=== PATIENT | female | born 2000 | race Two or more races ===

== ENCOUNTER 2018-07-17 20:34 | Observation (INO) | payer OTHER, MEDICAID ==
[2018-07-17] MEDS ORDERED: ONDANSETRON 4 MG/2 ML VIAL IVP ONE (20:53)
[2018-07-17] MEDS ORDERED: LORazepam 2 MG/ML INJ IVP ONE (20:53)
[2018-07-17] MEDS ORDERED: NS 1,000 ML IV ONE ×3 (20:53→23:25)
--- NOTE | 2018-07-17 20:55 | EDPHY ---
H & P Stated Complaint: N/V, CHILLS - Personal History LMP (Females 10-55): Now Current Tetanus Diphtheria and Acellular Pertussis (TDAP): Yes - Medical/Surgical History Hx Asthma: No Hx Chronic Respiratory Disease: No Hx Diabetes: No Hx Cardiac Disease: No Hx Renal Disease: No Hx Cirrhosis: No Hx Alcoholism: No Hx HIV/AIDS: No Hx Splenectomy or Spleen Trauma: No Other PMH: DENIES - Social History Smoking Status: Never smoked Time Seen by Provider: 07/17/18 20:48 HPI/ROS: CHIEF COMPLAINT: Nausea vomiting, dyspnea HISTORY OF PRESENT ILLNESS: 17-year-old female generally healthy, via private vehicle complaining of myalgia, fever, chills, nausea, vomiting, abdominal discomfort since earlier today with development of dyspnea since this evening after multiple episodes of vomiting and retching. No international travel. No chest pain. No syncope or near syncope. No influenza vaccination. No headache. No nuchal rigidity. No rash. PRIMARY CARE PROVIDER: REVIEW OF SYSTEMS: 10 systems reviewed and negative with the exception of the elements mentioned in the history of present illness PAST MEDICAL & SURGICAL HISTORY: No pertinent medical or surgical history SOCIAL HISTORY:Nonsmoker. No cocaine use. No drug or alcohol abuse. FAMILY HISTORY: no family history of premature coronary artery disease, coagulopathy or sudden unexplained PHYSICAL EXAM (Prior to examination, patient consented to physical exam, hands were washed and my usual and customary physical exam procedures followed) 1) GENERAL: Well-developed, well-nourished, alert and oriented. Appears anxious. 2) HEAD: Normocephalic, atraumatic 3) HEENT: Pupils equal, round, reactive to light bilaterally. Sclera anicteric. Nasopharynx, oropharynx, clear, no lesions. Dry mucous membranes. Ears bilaterally with normal tympanic membranes. 4) NECK: Full range of motion, no meningeal signs. No adenopathy. 5) LUNGS: Clear auscultation bilaterally, no wheezes, no rhonchi, no retractions. 6) HEART: Regular rate and rhythm, no murmur, no heave, no gallop. 7) ABDOMEN: No guarding, no rebound, no focal tenderness, negative McBurney's, negative Gomez's, negative Rovsing's, negative peritoneal sign, 8) MUSCULOSKELETAL: Moving all extremities, no focal areas of tenderness, no obvious trauma. No peripheral edema or discoloration. 9) BACK: No CVA tenderness, no midline vertebral tenderness, no fluctuance, no step-off, no obvious trauma, no visual or palpable abnormality. 10) SKIN: No rash, no petechiae. 11) Psychiatric: Patient is oriented X 3, there is no agitation. DIFFERENTIAL DIAGNOSIS: In no particular order including but not limited to pulmonary embolus, pneumothorax, pulmonary infectious etiology, influenza, meningitis (Azalia Ramon Afshan) Constitutional: Initial Vital Signs Temperature (C) 37.7 C 07/17/18 20:38 Heart Rate 139 H 07/17/18 20:38 Respiratory Rate 22 H 07/17/18 20:38 Blood Pressure 101/70 07/17/18 20:38 O2 Sat (%) 96 07/17/18 20:38 O2 Delivery Mode Room Air Allergies/Adverse Reactions: No Known Allergies Allergy (Verified 07/18/18 07:07) Home Medications: Medication Instructions Recorded NK [No Known Home Meds] 07/17/18 Medical Decision Making ED Course/Re-evaluation: 8:40 p.m.: I have evaluated the patient, will obtain influenza testing, laboratory studies as well as D-dimer as the patient has a non negative perc score, describes dyspnea. 9:22 p.m.: Oral temperature obtained by myself at this time is 38.4. She remains tachycardic. Will administer Tylenol Motrin as well as continued IV fluids and re-evaluate. D-dimer negative. I think this adequately excludes pulmonary embolus in this patient with a moderate pretest suspicion of PE and URI symptoms. 11:11 p.m.: Patient's lactate is normal. At this time after being given Tylenol Motrin she has defervesce. She remains tachycardic at 114 bpm. After 2 L IV fluid, 93/36 pulse rate 11:23 p.m.: Patient remains tachycardic, has received approximately 2400 cc of IV fluid. Recommended admission. Consultation with hospitalist Dr. Fuentes at this time will admit patient. Because the patient's symptoms have been occurring for less than 24 hr have initiated Tamiflu antiviral therapy. Doubt meningitis. (Azalia Ramon) This pt was seen and examined by me. VS noted, including tachycardia and borderline BP. She is actually well-appearing and in NAD. Chest is CTA and abd is soft/NT. Meets SIRS criteria, initial lactate normal. I agree with the assessment and plan. (Abena Wilson) - Data Points Laboratory Results: Laboratory Results 07/17/18 20:52 07/17/18 20:52 07/17/18 07/17/18 07/17/18 22:15 22:00 20:52 D-Dimer 0.38 ug/mLFEU ug/mLFEU (0.00-0.50) Urine Color YELLOW Urine Appearance CLEAR Urine pH 5.0 (5.0-7.5) Ur Specific [place] 1.021 (1.002-1.030) Urine Protein NEGATIVE (NEGATIVE) Urine Ketones 2+ H (NEGATIVE) Urine Blood 3+ H (NEGATIVE) Urine Nitrate NEGATIVE (NEGATIVE) Urine Bilirubin NEGATIVE (NEGATIVE) Urine Urobilinogen NEGATIVE EU EU (0.2-1.0) Ur Leukocyte Esterase NEGATIVE (NEGATIVE) Urine RBC 1-3 /hpf /hpf (0-3) Urine WBC 1-3 /hpf /hpf (0-3) Ur Epithelial Cells TRACE /lpf /lpf (NONE-1+) Urine Mucus TRACE /lpf /lpf (NONE-1+) Urine Glucose NEGATIVE (NEGATIVE) Nasal Influenza A PCR FLU A DETECTED H (NEGATIVE) Nasal Influenza B PCR NEGATIVE FOR FLU B (NEGATIVE) Medications Given: Acetaminophen (Tylenol) 1,000 mg PO TID PRN PRN Reason: Pain, Mild/Fever, Can Take PO Stop: 01/13/19 23:22 Last Admin: 07/18/18 07:47 Dose: 1,000 mg Albuterol/Ipratropium (Duoneb) 3 ml IH Q6HRS PRN PRN Reason: Short of Breath/Dyspnea Stop: 01/14/19 08:51 Last Admin: 07/18/18 09:22 Dose: 3 ml Benzonatate (Tessalon Pearles) 200 mg PO TID PRN PRN Reason: Cough, Mild Stop: 01/14/19 08:38 Last Admin: 07/18/18 08:54 Dose: 200 mg Ibuprofen (Motrin) 600 mg PO Q4HRS PRN PRN Reason: Pain, Mild/Fever, Can Take PO Stop: 01/13/19 23:22 Last Admin: 07/18/18 08:53 Dose: 600 mg Oseltamivir Phosphate (Tamiflu) 75 mg PO BIDMEAL BREANNA Stop: 07/22/18 18:01 Last Admin: 07/18/18 07:40 Dose: 75 mg Discontinued Medications Acetaminophen (Tylenol) 1,000 mg PO EDNOW ONE Stop: 07/17/18 21:23 Last Admin: 07/17/18 21:30 Dose: 1,000 mg Sodium Chloride (Ns) 1,000 mls @ 0 mls/hr IV ONCE ONE PRN Reason: Wide Open Stop: 07/17/18 20:54 Last Admin: 07/17/18 21:03 Dose: 1,000 mls Sodium Chloride (Ns) 1,000 mls @ 0 mls/hr IV EDNOW ONE; Wide Open PRN Reason: Protocol Stop: 07/17/18 23:25 Last Admin: 07/17/18 22:45 Dose: 1,000 mls Sodium Chloride (Ns) 1,000 mls @ 0 mls/hr IV EDNOW ONE; Wide Open PRN Reason: Protocol Stop: 07/17/18 23:26 Last Admin: 07/17/18 23:26 Dose: 1,000 mls Ibuprofen (Motrin) 800 mg PO EDNOW ONE Stop: 07/17/18 21:23 Last Admin: 07/17/18 21:30 Dose: 800 mg Lorazepam (Ativan Injection) 1 mg IVP EDNOW ONE Stop: 07/17/18 20:54 Last Admin: 07/17/18 21:04 Dose: 1 mg Ondansetron HCl (Zofran) 4 mg IVP EDNOW ONE Stop: 07/17/18 20:54 Last Admin: 07/17/18 21:03 Dose: 4 mg Oseltamivir Phosphate (Tamiflu) 75 mg PO EDNOW ONE Stop: 07/17/18 23:14 Last Admin: 07/17/18 23:23 Dose: 75 mg Departure - Departure Disposition: [facility] Clinical Impression: Influenza A, Tachycardia Condition: Fair
[2018-07-17 21:03] LABS: PLATELET COUNT 215 10^3/uL (150-400)
[2018-07-17] MEDS ORDERED: ACETAMINOPHEN 500 MG TAB PO ONE (21:22)
[2018-07-17] MEDS ORDERED: IBUPROFEN 800 MG TAB PO ONE (21:22)
[2018-07-17] MEDS ORDERED: ACETAMINOPHEN 500 MG TAB ONE (21:23)
--- NOTE | 2018-07-17 22:29 | CPEKG ---
Test Reason : OPEN Blood Pressure : / mmHG Vent. Rate : 122 BPM Atrial Rate : 122 BPM P-R Int : 157 ms QRS Dur : 078 ms QT Int : 325 ms P-R-T Axes : 054 015 000 degrees QTc Int : 463 ms Sinus tachycardia Borderline T wave abnormalities Confirmed by Abena Almazan ([id number]) on 07/17/2018 10:29:28 PM Referred By: ABENA ALMAZAN Confirmed By:Abena Almazan
[2018-07-17] MEDS ORDERED: OSELTAMIVIR PHOSPHATE 75 MG CAP PO ONE (23:13)
[2018-07-17] MEDS ORDERED: IBUPROFEN 200 MG TAB PO PRN (23:23)
[2018-07-17] MEDS ORDERED: ACETAMINOPHEN 500 MG TAB PO PRN (23:23)
[2018-07-17] MEDS ORDERED: ONDANSETRON 4 MG/2 ML VIAL IVP PRN (23:23)
[2018-07-17] MEDS ORDERED: ONDANSETRON DISINTEGRATING 4 MG TAB PO PRN (23:23)
[2018-07-17] MEDS ORDERED: NS 1,000 ML IV SCH (23:30)
--- NOTE | 2018-07-18 00:11 | PDGENHP ---
History and Physical - Chief Complaint Fever - History of Present Illness 17 yo F w/ minimal PMHx presents with flu-like symptoms. She tells he me her symptoms started today. She noted body aches followed by fever, chills, vomiting , and shortness of breath. Evaluation in the ED notable for influenza A. She remains tachycardic and tachypneic despite fluid resuscitation so she is being admitted for observation. CXR is suggestive of viral pneumonitis. The patient tells me she is feeling a bit better but still short of breath. Case discussed with ED CARRINGTON Ramon; records reviewed and summarized above. History Information - Allergies/Home Medication List Allergies/Adverse Reactions: No Known Allergies Allergy (Unverified 07/17/18 20:37) Home Medications: NK [No Known Home Meds] 07/17/18 [Last Taken Unknown] I have personally reviewed and updated: family history, medical history - Past Medical History no pertinent PMH - Surgical History Reports: no pertinent surgical hx - Family History Positive for: cancer - Social History Smoking Status: Never smoked Review of Systems Review of Systems: ROS: 10pt was reviewed & negative except for what was stated in HPI & below Physical Exam Physical Exam: Temp Pulse Resp BP Pulse Ox 36.9 C 112 H 24 H 92/42 L 95 07/17/18 23:00 07/18/18 00:02 07/18/18 00:02 07/18/18 00:02 07/18/18 00:02 Constitutional: appears nourished, uncomfortable Eyes: PERRL, EOMI Ears, Nose, Mouth, Throat: moist mucous membranes, no oral mucosal ulcers Cardiovascular: no murmur, rub, or gallop, tachycardia Respiratory: no respiratory distress, clear to auscultation Gastrointestinal: normoactive bowel sounds, soft, non-tender abdomen Skin: warm, normal color Musculoskeletal: full muscle strength, no muscle tenderness Neurologic: AAOx3, CN II-XII Intact Psychiatric: interacting appropriately, not anxious Lab Data & Imaging Review 07/17/18 20:52 07/17/18 20:52 WBC 9.65 10^3/uL (3.80-9.50) H 07/17/18 20:52 RBC 4.65 10^6/uL (4.18-5.33) 07/17/18 20:52 Hgb 13.4 g/dL (12.6-16.3) 07/17/18 20:52 Hct 41.3 % (38.0-47.0) 07/17/18 20:52 MCV 88.8 fL (81.5-99.8) 07/17/18 20:52 MCH 28.8 pg (27.9-34.1) 07/17/18 20:52 MCHC 32.4 g/dL (32.4-36.7) 07/17/18 20:52 RDW 12.3 % (11.5-15.2) 07/17/18 20:52 Plt Count 215 10^3/uL (150-400) 07/17/18 20:52 MPV 11.9 fL (8.7-11.7) H 07/17/18 20:52 Neut % (Auto) 88.3 % (39.3-74.2) H 07/17/18 20:52 Lymph % (Auto) 3.2 % (15.0-45.0) L 07/17/18 20:52 [place] % (Auto) 7.6 % (4.5-13.0) 07/17/18 20:52 Eos % (Auto) 0.1 % (0.6-7.6) L 07/17/18 20:52 Baso % (Auto) 0.2 % (0.3-1.7) L 07/17/18 20:52 Nucleat RBC Rel Count 0.0 % (0.0-0.2) 07/17/18 20:52 Absolute Neuts (auto) 8.52 10^3/uL (1.70-6.50) H 07/17/18 20:52 Absolute Lymphs (auto) 0.31 10^3/uL (1.00-3.00) L 07/17/18 20:52 Absolute Monos (auto) 0.73 10^3/uL (0.30-0.80) 07/17/18 20:52 Absolute Eos (auto) 0.01 10^3/uL (0.03-0.40) L 07/17/18 20:52 Absolute Basos (auto) 0.02 10^3/uL (0.02-0.10) 07/17/18 20:52 Absolute Nucleated RBC 0.00 10^3/uL (0-0.01) 07/17/18 20:52 Immature Gran % 0.6 % (0.0-1.1) 07/17/18 20:52 Immature Gran # 0.06 10^3/uL (0.00-0.10) 07/17/18 20:52 RBC/WBC/PLT Morphology TNP 07/17/18 20:52 Platelet Estimate TNP 07/17/18 20:52 D-Dimer 0.38 ug/mLFEU (0.00-0.50) 07/17/18 20:52 VBG Lactic Acid 1.2 mmol/L (0.7-2.1) 07/17/18 21:30 Sodium 133 mEq/L (135-145) L 07/17/18 20:52 Potassium 3.6 mEq/L (3.5-5.2) 07/17/18 20:52 Chloride 99 mEq/L (97-110) 07/17/18 20:52 Carbon Dioxide 22 mEq/l (22-31) 07/17/18 20:52 Anion Gap 12 mEq/L (6-14) 07/17/18 20:52 BUN 18 mg/dL (7-23) 07/17/18 20:52 Creatinine 0.9 mg/dL (0.6-1.0) 07/17/18 20:52 Estimated GFR > 60 07/17/18 20:52 Glucose 118 mg/dL (70-100) H 07/17/18 20:52 Calcium 9.8 mg/dL (8.5-10.4) 07/17/18 20:52 Total Bilirubin 0.5 mg/dL (0.1-1.4) 07/17/18 20:52 Conjugated Bilirubin 0.3 mg/dL (0.0-0.5) 07/17/18 20:52 Unconjugated Bilirubin 0.2 mg/dL (0.0-1.1) 07/17/18 20:52 AST 16 IU/L (14-46) 07/17/18 20:52 ALT 16 IU/L (9-52) 07/17/18 20:52 Alkaline Phosphatase 80 IU/L (38-126) 07/17/18 20:52 Total Protein 8.4 g/dL (6.3-8.2) H 07/17/18 20:52 Albumin 5.2 g/dL (3.5-5.0) H 07/17/18 20:52 Lipase 30 IU/L (23-300) 07/17/18 20:52 Beta HCG, Qual NEGATIVE 07/17/18 20:52 Urine Color YELLOW 07/17/18 22:15 Urine Appearance CLEAR 07/17/18 22:15 Urine pH 5.0 (5.0-7.5) 07/17/18 22:15 Ur Specific [place] 1.021 (1.002-1.030) 07/17/18 22:15 Urine Protein NEGATIVE (NEGATIVE) 07/17/18 22:15 Urine Ketones 2+ (NEGATIVE) H 07/17/18 22:15 Urine Blood 3+ (NEGATIVE) H 07/17/18 22:15 Urine Nitrate NEGATIVE (NEGATIVE) 07/17/18 22:15 Urine Bilirubin NEGATIVE (NEGATIVE) 07/17/18 22:15 Urine Urobilinogen NEGATIVE EU (0.2-1.0) 07/17/18 22:15 Ur Leukocyte Esterase NEGATIVE (NEGATIVE) 07/17/18 22:15 Urine RBC 1-3 /hpf (0-3) 07/17/18 22:15 Urine WBC 1-3 /hpf (0-3) 07/17/18 22:15 Ur Epithelial Cells TRACE /lpf (NONE-1+) 07/17/18 22:15 Urine Mucus TRACE /lpf (NONE-1+) 07/17/18 22:15 Urine Glucose NEGATIVE (NEGATIVE) 07/17/18 22:15 Nasal Influenza A PCR FLU A DETECTED (NEGATIVE) H 07/17/18 22:00 Nasal Influenza B PCR NEGATIVE FOR FLU B (NEGATIVE) 07/17/18 22:00 Imaging Review: Imaging Impressions Chest X-Ray 07/17/18 20:53 Impression: Findings most consistent with airways disease or viral pneumonitis. Assessment & Plan Assessment: 17 yo F presents w/ influenza A. Plan: 1. Influenza - She presents with 1 day of fever, chills, vomiting, and body aches. CXR (personally reviewed/interpreted) demonstrates viral pneumonitis. - Admit for observation - Tamiflu 75 mg PO BID x5 days - Continue IVF - Anti-pyretics, anti-emetics PRN 2. Tachycardia - Likely related to viral infection. - Continue IVF 3. Hyponatremia - Mild, likely related to infection and dehydration. - IVF and recheck BMP Diet - Regular Code - Full Ppx - Low risk Dispo - Admit under observation status
[2018-07-18 06:05] LABS: PLATELET COUNT 157 10^3/uL (150-400)
[2018-07-18] MEDS: OSELTAMIVIR PHOSPHATE 75 MG CAP PO SCH ×2 (07:40→17:09)
[2018-07-18] MEDS ORDERED: BENZONATATE 100 MG CAP PO PRN (08:39)
[2018-07-18] MEDS ORDERED: IPRATROPIUM/ALBUTEROL 3 ML DEYVIAL IH PRN (08:52)
[2018-07-18] MEDS ORDERED: guaiFENesin/CODEINE PHOS 10 ML UDCUP PO ONE (09:33)
[2018-07-18] MEDS ORDERED: GUAIFENESIN/DM 10 ML UDCUP PO PRN (09:33)
--- NOTE | 2018-07-18 09:38 | HOSPPROG ---
Hospitalist Progress Note Assessment/Plan: 17 yo F presents w/ influenza A. First encounter, chart reviewed. *Influenza A -hydrated w fluids overnight, feeling worsening shortness of breath; dc fluids *cough-persistent -will order Teswerneron Adin Altamiranoitussin -will order prn duonebs *tachycardia -resolved w fluids *hyponatremia -resolved *anemia -dilutional likely -recheck w PCP *plan: will check on her later today to see if she is feeling better Subjective: Dario is feeling poorly and is coughing frequently. Objective: Vital Signs Temp Pulse Resp BP Pulse Ox 37.1 C 68 18 101/52 L 98 07/18/18 07:36 07/18/18 09:20 07/18/18 09:20 07/18/18 07:36 07/18/18 09:20 Laboratory Results 07/18/18 05:09 07/18/18 05:09 07/17/18 07/18/18 07/19/18 05:59 05:59 05:59 Intake Total 3400 Balance 3400 - Physical Exam Constitutional: appears nourished, uncomfortable Eyes: PERRL Ears, Nose, Mouth, Throat: hearing normal Cardiovascular: regular rate and rhythym Respiratory: no respiratory distress, clear to auscultation Skin: warm Musculoskeletal: full muscle strength Neurologic: AAOx3 Psychiatric: interacting appropriately ICD10 Worksheet Patient Problems: Problems Problem Status Onset Influenza A Acute Tachycardia Acute
[2018-07-18 12:11] VITALS: BP 89/52
--- NOTE | 2018-07-19 04:23 | GDS ---
DISCHARGE DIAGNOSES: 1. Influenza A. 2. Cough due to this. 3. Tachycardia. 4. Hyponatremia. 5. Anemia. 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 She had body aches followed by fever, chills, vomiti ng, and shortness of breath. She was treated for the flu. Her chest x-ray was suggestive of viral p neumonitis. This afternoon, she is feeling markedly better. Her tachycardia is resolved. She is eating and drin lopez well. The only issue she is having is when she is coughing her chest hurts, but well managed wi th Tylenol and ibuprofen. HOSPITAL COURSE: 1. Influenza A, much improved. 2. Cough. She will get a prescription for Tessalon Perles and [id number] Robitussin. 3. Tachycardia, resolved. 4. Hyponatremia, resolved. 5. Anemia, likely dilutional. We will have her get her labs rechecked with her PCP as well as a uri nalysis because she had a few red blood cells in there. DISCHARGE CONDITION: Stable. Blood pressure is 101/52, heart rate is 74, respiratory rate is 12, O2 saturations on room air 95%, temperature 37.1 Celsius. MEDICATIONS AT DISCHARGE: Please see the EMR. DISCHARGE INSTRUCTIONS: 1. To follow up with her PCP and get a repeat CBC. 2. Get a repeat urinalysis. 3. She has a viral infection. This can turn into bacterial. If she gets worsening fever, chills, o r shortness of breath again to return to the ER or follow up with her PCP. /[id number]/MODL
== END 2018-07-18 17:44 | disposition home or self-care (01) ==
LOC: F3E 07-18 00:17
PROVIDERS: ADMIT Student in an Organized Health Care Education/Training Program; ATTEND Internal Medicine
DX: J10.1 Influenza due to other identified influenza virus with other respiratory manifestations (principal); R00.0 Tachycardia, unspecified; E86.9 Volume depletion, unspecified; E87.1 Hypo-osmolality and hyponatremia; D64.9 Anemia, unspecified
CPT/HCPCS: 71046; 93005; 96361; 96374; 96375; 99285; G0378; J2060; J2405

== ENCOUNTER 2018-07-19 03:45 | Emergency (ER) | payer OTHER, MEDICAID ==
[2018-07-19] MEDS ORDERED: ONDANSETRON DISINTEGRATING 4 MG TAB PO ONE (03:56)
--- NOTE | 2018-07-19 04:07 | EDPHY ---
H & P Stated Complaint: JUST DX WITH FLU, VOMITING DFEVER AD FEELING WORSE Time Seen by Provider: 07/19/18 03:52 HPI/ROS: Chief Complaint: Influenza, vomiting HPI: 17-year-old woman who was seen and admitted here 2 days ago with influenza. She was discharged yesterday afternoon. Patient states that since going home yesterday afternoon she has vomited 4 times is not been able to keep anything down. She has persistent dry cough productive of clear sputum. She is having subjective fevers and chills at home not keeping any medications down. No diarrhea or constipation. She is complaining some dull body aches. ROS: 10 systems were reviewed and were negative except those elements noted in the HPI. PMH: Denies Social History: No smoking, no alcohol, no recreational drug use Family History: non-contributory Physical Exam: Gen: Awake, Alert, No Distress HEENT: Nose: no rhinorrhea Eyes: PERRLA, EOMI Mouth: Moist mucosa Neck: Supple, no JVD Chest: nontender, lungs clear to auscultation Heart: S1, S2 normal, no murmur Abd: Soft, non-tender, no guarding Back: no CVA tenderness, no midline tenderness Ext: no edema, non-tender Skin: no rash Neuro: CN II-XII intact, Sensation grossly intact, Strength 5/5 in bilateral upper and lower extremities - Personal History LMP (Females 10-55): Now Current Tetanus/Diphtheria Vaccine: Yes Current Tetanus Diphtheria and Acellular Pertussis (TDAP): Yes - Medical/Surgical History Hx Asthma: No Hx Chronic Respiratory Disease: No Hx Diabetes: No Hx Cardiac Disease: No Hx Renal Disease: No Hx Cirrhosis: No Hx Alcoholism: No Hx HIV/AIDS: No Hx Splenectomy or Spleen Trauma: No Other PMH: heart murmur, - Social History Smoking Status: Never smoked Constitutional: Initial Vital Signs Temperature (C) 37.5 C 07/19/18 03:50 Heart Rate 88 07/19/18 03:50 Respiratory Rate 18 07/19/18 03:50 Blood Pressure 118/72 07/19/18 03:50 O2 Sat (%) 98 07/19/18 03:50 O2 Delivery Mode Room Air Allergies/Adverse Reactions: No Known Allergies Allergy (Verified 07/19/18 03:52) Home Medications: Medication Instructions Recorded Acetaminophen [Tylenol ES 500 mg 1,000 mg PO TID PRN tab 07/18/18 (*)] Benzonatate [Tessalon Pearles] 200 mg PO TID PRN #30 cap 07/18/18 Ibuprofen [Motrin (*)] 600 mg PO Q4HRS PRN tab 07/18/18 Oseltamivir Phosphate [Tamiflu 75 75 mg PO BIDMEAL #8 cap 07/18/18 mg (*)] guaiFENesin/DEXTROMETHORPHAN 10 ml PO Q4HRS PRN ml 07/18/18 [Robitussin Dm Oral Liquid (*)] Ondansetron Odt [Zofran Odt 4 mg 4 mg PO Q4 PRN #10 tab 07/19/18 (*)] Medical Decision Making ED Course/Re-evaluation: Patient recently discharged with influenza. Return for not being able to keep fluids down. She has gotten Zofran and Phenergan here. She is tolerating p.o.. No further vomiting. She has had 2 large cups of water and a cup of juice. Vital signs are completely normal. Lungs are clear. Will discharge with supportive care, antiemetics, follow up with primary care physician. - Data Points Medications Given: Discontinued Medications Ibuprofen (Motrin) 600 mg PO EDNOW ONE Stop: 07/19/18 04:58 Last Admin: 07/19/18 04:58 Dose: 600 mg Ondansetron HCl (Zofran Odt) 4 mg PO EDNOW ONE Stop: 07/19/18 03:57 Last Admin: 07/19/18 04:00 Dose: 4 mg Promethazine HCl (Phenergan) 25 mg PO EDNOW ONE Stop: 07/19/18 04:36 Last Admin: 07/19/18 04:36 Dose: 25 mg Departure - Departure Disposition: Home, Routine, Self-Care Clinical Impression: Influenza A Condition: Good Instructions: Influenza (ED), Acute Nausea and Vomiting (ED), Ondansetron (By mouth) Additional Instructions: You may take Zofran as needed for vomiting. Make sure to drink plenty of fluids. Alternate acetaminophen (1000 mg) with ibuprofen (400 mg) every 4 hours as needed for fevers, chills, aches or pain. Follow up with primary care physician in 2-3 days for further evaluation. Referrals: CHARLA CHURCHILL [Other] - As per Instructions Prescriptions: Ondansetron Odt [Zofran Odt 4 mg (*)] 4 mg PO Q4 PRN #10 tab PRN Reason: nausea
[2018-07-19] MEDS ORDERED: PROMETHAZINE HCL 25 MG TAB ONE (04:34)
[2018-07-19] MEDS ORDERED: PROMETHAZINE HCL 25 MG TAB PO ONE (04:35)
[2018-07-19] MEDS ORDERED: IBUPROFEN 600 MG TAB PO ONE (04:57)
[2018-07-19] MEDS ORDERED: ONDANSETRON 4MG PREPACK#2 BTL TAKEHOME ONE (05:32)
[2018-07-19 05:43] VITALS: BP 109/79
== END 2018-07-19 05:42 | disposition home or self-care (01) ==
DX: R11.2 Nausea with vomiting, unspecified (principal); J10.2 Influenza due to other identified influenza virus with gastrointestinal manifestations